=== PATIENT | female | born 1985 | race African-American/Black ===

== ENCOUNTER 2020-12-17 06:13 | Day surgery (SDC) | payer OTHER ==
[2020-12-12 09:52] LABS: HEMATOCRIT 35.8 % (36.0-47.0); HEMOGLOBIN 11.4 g/dL (12.0-15.5); MEAN CORPUSCULAR HGB CONC 31.8 g/dL (32.0-36.0); MEAN CORPUSCULAR VOLUME 73 fl (80-97); PLATELET COUNT 202 10^3/uL (150-450); RED BLOOD COUNT 4.93 10^6/uL (3.72-5.28); RED CELL DISTRIBUTION WIDTH 14.2 % (11.5-14.0)
[2020-12-12 12:50] LABS: APPEARANCE,URINE CLEAR; BILIRUBIN,URINE NEGATIVE (NEGATIVE); COLOR,URINE YELLOW; GLUCOSE, URINE NEGATIVE (NEGATIVE); KETONES,URINE NEGATIVE (NEGATIVE); LEUKOCYTE ESTERASE,URINE NEGATIVE (NEGATIVE); NITRITE,URINE NEGATIVE (NEGATIVE); PROTEIN,URINE NEGATIVE (NEGATIVE); URINE SPECIFIC GRAVITY 1.012; UROBILINOGEN,URINE NEGATIVE mg/dL (<2.0)
[2020-12-17] MEDS ORDERED: FENTANYL CITRATE INJ/PF 100 MCG/2 ML AMPUL ONE (06:40)
[2020-12-17] MEDS ORDERED: SUGAMMADEX SODIUM 200 MG/2 ML SDV IV ONE (06:41)
[2020-12-17] MEDS ORDERED: PROPOFOL INJ 200 MG/20 ML VIAL IV ONE (06:41)
[2020-12-17] MEDS ORDERED: MIDAZOLAM 2 MG/2 ML INJ ONE (06:41)
[2020-12-17] MEDS ORDERED: LIDOCAINE 2% INJ (20 MG/ML) 20 ML MDV ONE (06:43)
[2020-12-17] MEDS ORDERED: FENTANYL CITRATE INJ/PF 100 MCG/2 ML AMPUL IV PRN ×3 (08:25)
[2020-12-17] MEDS ORDERED: PROMETHAZINE HCL INJ 25 MG/1 ML VIAL IV PRN ×2 (08:25)
[2020-12-17] MEDS ORDERED: MEPERIDINE HCL/PF INJ 25 MG/1 ML DISP.SYRIN IV PRN (08:25)
[2020-12-17] MEDS ORDERED: MORPHINE SULFATE 10 MG/ML INJ IV PRN (08:25)
[2020-12-17] MEDS ORDERED: DIPHENHYDRAMINE HCL 50 MG/ML VIAL IV PRN (08:25)
[2020-12-17] MEDS ORDERED: OXYCODONE-ACETAMINOPHEN 5-325 MG TABLET PO PRN ×3 (08:25→09:22)
--- NOTE | 2020-12-17 08:43 | Operative Report ---
Operative Report DATE OF SURGERY: 12/17/20 PREOPERATIVE DIAGNOSIS: Desire for sterilization POSTOPERATIVE DIAGNOSIS: Same plus endometriosis OPERATION: Bilateral tubal occlusion using Filshie clips SURGEON: ANGELITA STEVENS ANESTHESIA: GA TISSUE REMOVED OR ALTERED: None COMPLICATIONS: None ESTIMATED BLOOD LOSS: Negligible PROCEDURE: Patient placed in dorsal lithotomy position prepped draped sterile fashion. Speculum was placed cervix was visualized and grasped with a single-tooth tenaculum and Hulka tenaculum and was placed in single-tooth tenaculum was removed speculum is removed and the bladder drained with a catheter. Return to the abdomen where a subumbilical incision was made trocar was introduced with in sufflation of the abdomen. Laparoscope was placed and visualization of the pelvis which appeared to have mild endometriosis but no other abnormalities noted. Second puncture made above the symphysis. Right fallopian tube was identified to the fimbria and a Filshie clip was placed on the proximal portion. The procedure was repeated on the left again noted to be identified to the fimbria are prior to and after banding. No other overt abnormalities were noted laparoscope was removed them deflated and the trocar sleeve was removed. Incision was closed with 0 Vicryl for fascia and 4-0 Vicryl subcutaneous for the skin. The Hulka tenaculum was removed and hemostasis was noted and procedure terminated she was taken to recovery room in good condition
[2020-12-17] MEDS ORDERED: ONDANSETRON HCL 8 MG TABLET PO PRN (09:22)
[2020-12-17] MEDS ORDERED: OXYCODONE-ACETAMINOPHEN 5-325 MG TABLET ONE (09:27)
[2020-12-17 12:14] VITALS: BP 147/98
[2020-12-17] MEDS ORDERED: IBUPROFEN 800 MG TABLET PO SCH (14:00)
[2020-12-17] MEDS ORDERED: DEXAMETHASONE SOD PHOSPHATE INJ 4 MG/1 ML VIAL ONE (15:08)
[2020-12-17] MEDS ORDERED: DIPHENHYDRAMINE HCL 50 MG/ML VIAL ONE (15:08)
[2020-12-17] MEDS ORDERED: METOCLOPRAMIDE HCL INJ/PF 10 MG/2 ML SDV ONE (15:08)
[2020-12-17] MEDS ORDERED: KETOROLAC TROMETHAMINE 60 MG/2 ML SDV ONE (15:08)
[2020-12-17] MEDS ORDERED: SUCCINYLCHOLINE CHLORIDE INJ 200 MG/10 ML VIAL ONE (15:10)
[2020-12-17] MEDS ORDERED: ROCURONIUM BROMIDE INJ 50 MG/5 ML VIAL IV ONE (15:10)
[2020-12-17] MEDS ORDERED: ONDANSETRON HCL INJ/PF 4 MG/2 ML SDV ONE (15:10)
== END 2020-12-17 10:40 | disposition home or self-care (01) ==
LOC: OROUT 06:13
PROVIDERS: ATTEND Obstetrics & Gynecology Gynecology
DX: Z30.2 Encounter for sterilization (principal); N80.3 Endometriosis of pelvic peritoneum; Z01.812 Encounter for preprocedural laboratory examination; Z20.822 Contact with and (suspected) exposure to COVID-19
CPT/HCPCS: 36415 ×2; 84703; 85027; 87635; 81005; 58671; J2250; J3490 ×3; J1100; J1200; J1885; J3010; J2765; J0330; J2405; J2704; C9803; 851